=== PATIENT | female | born 1980 | race Caucasian/White ===

== ENCOUNTER 2021-06-29 08:44 | Emergency (ER) | payer OTHER ==
[2021-06-29 08:50] VITALS: BP 116/75; PULSE 88; TEMP 97; BMI 23.9
== END 2021-06-29 10:10 | disposition home or self-care (01) ==
LOC: JER 08:44 → JERFT 08:44
DX: S60.450A Superficial foreign body of right index finger, initial encounter (principal); W49.04XA Ring or other jewelry causing external constriction, initial encounter
CPT/HCPCS: 99282-25